=== PATIENT | male | born 1955 | race Caucasian/White ===

== ENCOUNTER → 2024-02-25 14:26 | Outpatient (REF) | payer MEDICARE, OTHER, SELFPAY | LOC: HWRAD 14:26 | PROVIDERS: ATTENDING PHYSICIAN Internal Medicine | DX: G44.52 New daily persistent headache (NDPH) (principal) | CPT/HCPCS: 70470; Q9967 ==

== ENCOUNTER → 2024-05-17 18:57 | Outpatient (REF) | payer MEDICARE, OTHER, SELFPAY | LOC: RAD 18:57 | PROVIDERS: ATTENDING PHYSICIAN Internal Medicine | DX: M25.562 Pain in left knee (principal) | CPT/HCPCS: 73564 ==

== ENCOUNTER 2024-06-13 18:23 | Outpatient (RCR) | payer MEDICARE, OTHER, SELFPAY | END 2024-06-13 23:59 | disposition home or self-care (01) | LOC: RPT 18:23 | PROVIDERS: ATTENDING PHYSICIAN Internal Medicine | DX: M79.605 Pain in left leg (principal); M25.562 Pain in left knee | CPT/HCPCS: 97110; 97140; 97162; 97530 ==

== ENCOUNTER 2024-07-20 16:56 | Outpatient (RCR) | payer MEDICARE, OTHER, SELFPAY | END 2024-07-20 23:59 | disposition home or self-care (01) | LOC: RPT 16:56 | PROVIDERS: ATTENDING PHYSICIAN Internal Medicine | DX: M79.605 Pain in left leg (principal); M25.562 Pain in left knee; Z73.6 Limitation of activities due to disability | CPT/HCPCS: 97110; 97140 ==

== ENCOUNTER 2024-08-03 18:48 | Outpatient (RCR) | payer MEDICARE, OTHER, SELFPAY | END 2024-08-03 23:59 | disposition home or self-care (01) | LOC: RPT 18:48 | PROVIDERS: ATTENDING PHYSICIAN Internal Medicine | DX: M79.605 Pain in left leg (principal); M25.562 Pain in left knee; Z73.6 Limitation of activities due to disability | CPT/HCPCS: 97110; 97140 ==

== ENCOUNTER → 2024-09-12 13:39 | Outpatient (REF) | payer MEDICARE, OTHER, SELFPAY | LOC: DHSLP 13:39 | PROVIDERS: ATTENDING PHYSICIAN Internal Medicine | DX: G47.33 Obstructive sleep apnea (adult) (pediatric) (principal) | CPT/HCPCS: 95800 ==

== ENCOUNTER 2025-03-04 21:22 | Emergency (ER) | payer MEDICARE, OTHER, SELFPAY ==
[2025-03-04 21:23] VITALS: BP 150/104
--- NOTE | 2025-03-04 21:51 | ED.GENMED ---
History of Present Illness
General
Chief Complaint: Flank Pain
Source: patient
Exam Limitations: none
Time Seen by Provider: 03/04/25 21:57
Nursing documentation reviewed up to this point in time: agreed with
History of Present Illness
History of Present Illness:
69-year-old male with history of GERD, diverticulitis presents for right flank pain that started 3 to 4 hours ago. He states it was really bad 08/31 then subsided then came back and then started to subside again and is now 4/5. He denies fever or
chills. He denies nausea or vomiting. He denies abdominal pain.
Past History
Past History
ED Past Medical History: Other (Diverticulitis)
ED Past Surgical History: Bowel resection, Orthopedic and Other (Colon resection)
Social History
Tobacco: Non-smoker
Alcohol: None
Personal:
Living: with family
Employment: Employed
Review of Systems
Review of Systems
Allergies reviewed?: Yes
All Other Systems: ROS reviewed and negative except as documented in HPI and ROS
Constitutional: Denies fever or chills
Cardiac: Denies palpitations
ABD/GI: Denies abdominal pain, nausea or vomiting
: Reports flank pain (right); Denies dysuria, frequency or difficulty voiding
Musculoskeletal: Reports no symptoms
Skin: Reports no symptoms
Neurological: Reports no symptoms
Phy Exam
Physical Exam
Physical Exam:
GENERAL: No acute distress. A&Ox3.
CONSTITUTIONAL: Afebrile.
EYES: clear, conjunctivae normal
ENMT: moist mucus membranes
RESPIRATORY: Regular respirations, nonlabored, lungs clear.
CARDIOVASCULAR: Regular rate and rhythm, no murmurs, no rubs.
GI: Soft, nontender, mild right flank pain, normal BS
MUSCULOSKELETAL: Moves with ease. Well perfused.
SKIN: Warm, dry, pink
PSYCH: Normal mood and affect. Well kept, interactive and appropriate
NEUROLOGIC: Awake, alert and oriented. No focal neurological deficits
Course
Orders/Labs/Results
Orders:
Orders
03/04/25 21:50
CT Abd/pel Without Iv Or Oral Urgent
Comment:
Reason For Exam: R flank pain
03/04/25 21:51
0.9% Sodium Chloride 1000 ml [Nss] 1,000 ml IV BOLUS
Ketorolac [Toradol] 15 mg IV NOW STA
03/04/25 22:11
Complete Blood Count/With Diff Urgent
Comprehensive Metabolic Panel Urgent
Urinalysis Reflex To Culture Urgent
Date Specimen was Collected: 03/04/25
Time Specimen was Collected: 22:04
Urine Microscopic Reflex Cult Urgent
03/04/25 23:33
Oxycodone/Acetaminophen [Percocet 5/325] 1 tablet PO NOW STA
Abnormal Lab Results
03/04/25
22:11
RBC 4.46 L 10^6/uL
(4.70-6.10)
Hct 38.4 L %
(39.0-52.0)
Monocytes % 13.0 H %
(1.7-9.3)
Chloride 108 H mmol/L
(98-107)
Glucose 103 H mg/dl
(70-99)
ALT 63 H U/L
(0-50)
Total Protein 6.0 L g/dl
(6.3-8.2)
Ur Occult Blood Reflex 4+ A
(Negative)
Urine RBC 16-20 A /HPF
(0-2)
Urine Bacteria (Reflex) Few A
(Negative)
Urine Albumin (Reflex) 1+ A
(Neg - Trace)
03/04/25 22:11
03/04/25 22:11
Vital Signs
Initial and Last Documented VS:
Initial Vital Signs
Temp Pulse Resp BP Pulse Ox
97.9 F 80 22 150/104 96
03/04/25 21:23 03/04/25 21:23 03/04/25 21:23 03/04/25 21:23 03/04/25 21:23
Last Documented Vital Signs
Temp Pulse Resp BP Pulse Ox
97.9 F 70 15 161/107 98
03/04/25 21:23 03/04/25 23:20 03/04/25 23:20 03/04/25 23:20 03/04/25 23:20
MDM/Problems Addressed
Differential Diagnosis Includes:
Kidney stone, ureteral stone, UTI, pyelonephritis, diverticulitis
MDM/Problems Addressed:
69-year-old male with history of GERD, diverticulitis presents for right flank pain that started 3 to 4 hours ago. He states it was really bad 10/10 then subsided then came back and then started to subside again and is now 4/5. He denies fever or
chills. He denies nausea or vomiting.
Afebrile, NAD
CAT scan abdomen pelvis radiology report read: IMPRESSION:
There is no hydronephrosis. There is a 4 mm stone in the region of the proximal right renal pelvis.
Colonic diverticulosis.
It is reassuring that there is no hydronephrosis, there was calcium oxalate in the urine, Case discussed with Dr. Susy Mensah who agrees patient okay for discharge on pain medication.
Pt pain is improved with Toradol,now 2/10
Pt has seen Dr[address] Serrano in the past for prostate
Rx for Percocet sent to pt pharmacy.
Return instructions discussed with pt and , all questions answered
BP 140/95 at discharge
*Critical Care Note
Total Time (30-74mins, 75-104mins- exclusive of procedures): Not Applicable
ED Attending Note
-
Portions of this chart may have been created with voice recognition software.� Occasional wrong word or��sound alike� substitutions may have occurred due to the inherent limitations of voice recognition software.
Discharge Plan
Departure
Patient Disposition: Home (Routine Discharge)
Date of Disposition: 03/04/25
Time of Disposition: 23:30
Patient with high blood pressure during this ER visit?: No
Condition: Good
Discharge Problem:
Acute right flank pain
Instructions: Kidney Stones (DC), Flank Pain (DC), Narcotic Pain Medication
Prescriptions:
New
oxycodone-acetaminophen [Percocet] 5-325 mg tablet
1 tab PO Q6HPRN PRN (Reason: pain) Qty: 7 0RF
No Action
ciprofloxacin HCl 500 MG tablet
500 mg PO Daily Qty: 5 0RF
Referrals:
Kade Serrano MD [Active] - Call in 1-3 days for appt
Robbie Garcia MD [Family Provider] -
Activity Restrictions/Additional Instructions:
As we discussed, you have a 4 mm stone in the pelvis of the kidney. This may break off and traveled down the ureter as we discussed. If this happens you will develop more pain.
Ibuprofen 600 mg every 6 hours for mild to moderate pain and use the Percocet if needed for worse pain.
Return here immediately for pain that is not relieved by the medication ibuprofen or Percocet, you develop fever, chills, vomiting or feeling sicker in any way
I sent a prescription to your pharmacy for Percocet
Interventions
Interventions:
*Risk Screen - Suicide Last Done: 03/04/25 21:23
*General Assessment Last Done: 03/04/25 21:36
*Neglect/Abuse Screening Last Done: 03/04/25 21:23
*ED- Fall Risk Assessment Last Done: 03/04/25 21:36
*ED COVID-19 Vaccine History Last Done: 03/04/25 21:36
EM-Vkprhf-Qqujkjaesy Assessment Last Done: 03/04/25 21:36
ED-Male Genitourinary Assessment Last Done: 03/04/25 21:36
Discharge Date and Time
Print Language: ARABIC
[2025-03-04] MEDS: TORADOL 15 MG IV (22:18)
[2025-03-04] MEDS: NSS 1000 IV (22:18)
[2025-03-04 22:31] LABS: % Basophils 0.8 % (0-2); % Eosinophils 4.1 % (0-6); % Immature Granulocytes 0.2 % (0-0.5); % Lymphocytes 30.9 % (20.5-51.1); Absolute Eosinophils 0.2 10^3/uL (0-0.7); Absolute Lymphocytes 1.5 10^3/uL (1.2-3.4); Absolute Monocytes 0.6 10^3/uL (0.1-0.6); Absolute Neutrophils 2.5 10^3/uL (1.4-6.5); Hematocrit 38.4 % (39.0-52.0); Hemoglobin 13.3 g/dL (13.0-18.0); Mean Corp Hgb Conc. 34.6 g/dL (33.0-37.0); Mean Corpuscular Hgb 29.8 pg (27.0-31.0); Mean Corpuscular Volume 86.1 fL (80.0-94.0); Mean Platelet Volume 9.3 fL (7.4-10.4); Nucleated Red Blood Cells % 0 % (-); Platelet Count 226 10^3/uL (130-400); Red Blood Cell Count 4.46 10^6/uL (4.70-6.10); Red Cell Dist. Width 14.1 % (11.5-14.5); White Blood Cell Count 4.9 10^3/uL (4.8-10.8)
[2025-03-04 22:43] LABS: Urine Albumin 1+ (Neg - Trace); Urine Bilirubin Negative (Negative); Urine Character Clear (Clear); Urine Color Yellow; Urine Glucose Negative (Negative); Urine Ketone Negative (Negative); Urine Leukocyte Negative (Negative); Urine Nitrite Negative (Negative); Urine Occult Blood 4+ (Negative); Urine Urobilinogen Negative (Neg - 1+)
[2025-03-04 22:46] LABS: ALT (SGPT) 63 U/L (0-50); AST (SGOT) 33 U/L (17-59); Albumin 3.7 g/dl (3.5-5.0); Alkaline Phosphatase 55 U/L (38-126); Blood Urea Nitrogen 20 mg/dl (9-20); Calcium 9.8 mg/dl (8.4-10.2); Carbon Dioxide 24 mmol/L (22-30); Chloride 108 mmol/L (98-107); Glucose 103 mg/dl (70-99); Potassium 4.3 mmol/L (3.5-5.1); Sodium 140 mmol/L (135-145); Total Bilirubin 0.5 mg/dl (0.2-1.3); eGFR > 60.00
[2025-03-04 22:48] LABS: Urine Mucus Moderate; Urine Squamous Cell 0-2 /LPF (Few)
[2025-03-04 22:49] LABS: Urine Calcium Oxalate Crystals Present
[2025-03-04 22:50] LABS: Urine Bacteria Few (Negative); Urine Red Blood Cell 16-20 /HPF (0-2); Urine White Cell 0-2 /HPF (0-5)
[2025-03-04 23:20] VITALS: BP 161/107
[2025-03-04 23:30] VITALS: BP 153/105
[2025-03-04 23:45] VITALS: BP 140/95
[2025-03-04] MEDS: PERCOCET 5/325 1 TABLET PO (23:45)
== END 2025-03-04 23:50 | disposition home or self-care (01) ==
LOC: EMR 21:22
PROVIDERS: Registered Nurse; EMERGENCY PHYSICIAN Emergency Medicine; FAMILY PHYSICIAN Internal Medicine
DX: K57.30 Diverticulosis of large intestine without perforation or abscess without bleeding (principal); N20.0 Calculus of kidney; K21.9 Gastro-esophageal reflux disease without esophagitis
CPT/HCPCS: 99284; 96374; 96361; 74176; 80053; 81003; 81015; 85025